=== PATIENT | female | born 1980 | race Native Hawaiian/Other Pacific Islander ===

== ENCOUNTER 2017-10-04 14:38 | Outpatient (CLI) | payer OTHER | END 2017-10-04 21:23 | disposition home or self-care (01) | LOC: RAD 14:38 | DX: M79.604 Pain in right leg (principal) ==

== ENCOUNTER 2022-04-01 19:52 | Emergency (ER) | payer OTHER ==
[~2022-04-01] VITALS: Ht 165.1 cm; Wt 72.6 kg
[2022-04-01 20:47] LABS: PLATELET COUNT 257 K/uL (152-353)
[2022-04-01 20:54] LABS: PARTIAL THROMBOPLASTIN TIME 22.7 SECONDS (24.5-33.6)
[2022-04-01 22:20] VITALS: BP 139/83; TEMP 98.2
== END 2022-04-01 22:22 | disposition short-term general hospital (02) ==
LOC: ED 19:52
PROVIDERS: Emergency Medicine
DX: I20.0 Unstable angina (principal); R94.31 Abnormal electrocardiogram [ECG] [EKG]; F17.210 Nicotine dependence, cigarettes, uncomplicated; Z11.52 Encounter for screening for COVID-19
CPT/HCPCS: 36415; 80053; 84484; 85027; 85379; 85610; 85730; 87635; 93005; 99285; U0003